=== PATIENT | female | born 1930 | race Caucasian/White ===

== ENCOUNTER 2017-12-12 14:47 | Inpatient (IN) | payer MEDICARE, OTHER ==
[~2017-12-12] VITALS: Ht 152.4 cm; Wt 80.0 kg
[~2017-12-12 14:47] MED LIST: ADV50100 IH; AMLO2.5T2 PO; CICL90CR3 TOP; COR3.125T PO; LORA1TAB PO; SIMV10TA2 PO; SUCR1ORA12 PO; ZES10T PO
[2017-12-12] MEDS ORDERED: albuterol 2.5 MG/3 ML nebule NEB ONE (14:55)
[2017-12-12] MEDS ORDERED: ASPI-1265 PO (15:25)
[2017-12-12 15:27] LABS: ALANINE AMINOTRANSFERASE 17 U/L (12-78); ALBUMIN 3.1 G/DL (3.4-5.0); ALBUMIN/GLOBULIN RATIO 0.9 (1.1-1.5); ALKALINE PHOSPHATASE 75 IU/L (46-116); ANION GAP 10 (8-16); ASPARTATE AMINO TRANSFERASE 18 U/L (10-37); BILIRUBIN,TOTAL 0.4 MG/DL (0.1-1.0); BLOOD UREA NITROGEN 19 MG/DL (7-18); CALCIUM 8.3 MG/DL (8.5-10.1); CHLORIDE 109 MMOL/L (99-107); CREATININE 1.27 MG/DL (0.40-0.90); GLUCOSE 111 MG/DL (70-104); MAGNESIUM 1.6 MG/DL (1.5-2.4); POTASSIUM 3.8 MMOL/L (3.5-5.1); SODIUM 142 MMOL/L (135-145); TOTAL CARBON DIOXIDE 23.2 MMOL/L (24-32); TOTAL PROTEIN 6.7 G/DL (6.4-8.2); eGFR 40 ML/MIN
[2017-12-12 15:28] LABS: BASOPHILS % (AUTO) 0.4 % (0-1); EOSINOPHILS # (AUTO) 0.2 X10'3 (0-0.9); EOSINOPHILS % (AUTO) 2.7 % (0-6); HEMATOCRIT 39.1 % (35.0-45.0); LYMPHOCYTES # (AUTO) 2.8 X10'3 (1.1-4.8); LYMPHOCYTES % (AUTO) 32.9 % (21-51); MEAN CORPUSCULAR HEMOGLOBIN 29.3 PG (27.0-31.0); MEAN CORPUSCULAR HGB CONC 33.3 % (33.0-36.5); MEAN CORPUSCULAR VOLUME 87.9 FL (78-98); MEAN PLATELET VOLUME 8.5 FL (7.4-10.4); MONOCYTES # (AUTO) 0.6 X10'3 (0-0.9); MONOCYTES % (AUTO) 6.6 % (2-12); NEUTROPHILS # (AUTO) 4.9 X10'3 (1.8-7.7); NEUTROPHILS % (AUTO) 57.4 % (42-75); PLATELET COUNT 276 X10'3 (140-440); RED BLOOD COUNT 4.45 X10'6 (4.20-5.60); RED CELL DISTRIBUTION WIDTH 13.2 % (11.5-14.5); WHITE BLOOD COUNT 8.4 X10'3 (4.5-11.0)
[2017-12-12 15:35] LABS: INR 1.1 INR; PARTIAL THROMBOPLASTIN TIME 25 SECONDS (22-32); PROTHROMBIN TIME 10.7 SECONDS (9.0-12.0)
[2017-12-12] MEDS ORDERED: TIOT4MIS2 INH (15:37)
[2017-12-12] MEDS ORDERED: BUDE10.2 INH (15:37)
[2017-12-12] MEDS ORDERED: GABA-532 PO (15:37)
[2017-12-12] MEDS ORDERED: metoprolol tartrate 1mg/ml inj IV PRN (17:25)
[2017-12-12] MEDS ORDERED: magnesium 1gm/100ml D5W IVPB 100 ML IV PRN (17:25)
[2017-12-12] MEDS ORDERED: morphine 2 MG/ML inj. syringe IV PRN ×2 (17:25)
[2017-12-12] MEDS ORDERED: regadenoson 0.4mg/5ml syringe IV PRN (17:25)
[2017-12-12] MEDS ORDERED: magnesium 4gm in 100ml NS 100 ML IV PRN (17:25)
[2017-12-12] MEDS ORDERED: mag hydrox/Alum hydrox/simeth 30ml oral suspension PO PRN (17:25)
[2017-12-12] MEDS ORDERED: magnesium Cl slow-release 64mg tablet PO PRN (17:25)
[2017-12-12] MEDS ORDERED: potassium Cl 20 mEq SR tablet PO PRN ×2 (17:25)
[2017-12-12] MEDS ORDERED: acetaminophen 325mg tablet PO PRN ×2 (17:25)
[2017-12-12] MEDS ORDERED: magnesium hydroxide 30ml (MOM) UD suspension PO PRN (17:25)
[2017-12-12] MEDS ORDERED: nitroGLYCERIN 0.4mg SUBLingual tab SL PRN ×2 (17:25)
[2017-12-12] MEDS ORDERED: aminophylline 250mg/10ml inj. IV PRN (17:25)
[2017-12-12] MEDS ORDERED: ondansetron/PF 4mg/2ml inj IV PRN (17:25)
[2017-12-12] MEDS ORDERED: metoprolol tartrate 1mg/ml inj IV ONE (17:25)
[2017-12-12] MEDS ORDERED: potassium Cl 40MEQ/NS 500ml 500 ML IV PRN ×2 (17:25)
[2017-12-12 18:02] LABS: HEMOGLOBIN A1C 5.5 % (4.5-6.2)
[2017-12-12] MEDS ORDERED: metoprolol tartrate 50mg tablet PO SCH (20:00)
[2017-12-12] MEDS ORDERED: hydrALAZINE 20mg/ml inj. IV PRN (20:05)
[2017-12-12 20:35] VITALS: BP 162/72
[2017-12-12] MEDS ORDERED: gabapentin 300mg capsule PO SCH (21:00)
[2017-12-12] MEDS: budesonide 0.5mg/2ml UD nebule IH SCH (21:30)
[2017-12-12 23:15] VITALS: BP 185/80
[2017-12-13] VITALS (12 sets, daily range): BP systolic 117–171; BP diastolic 60–81
[2017-12-13 05:52] LABS: BASOPHILS % (AUTO) 0.4 % (0-1); EOSINOPHILS # (AUTO) 0.3 X10'3 (0-0.9); EOSINOPHILS % (AUTO) 3.4 % (0-6); HEMATOCRIT 43.7 % (35.0-45.0); HEMOGLOBIN 14.6 g/dl (12.0-16.0); LYMPHOCYTES # (AUTO) 2.6 X10'3 (1.1-4.8); LYMPHOCYTES % (AUTO) 31.9 % (21-51); MEAN CORPUSCULAR HEMOGLOBIN 29.2 PG (27.0-31.0); MEAN CORPUSCULAR HGB CONC 33.4 % (33.0-36.5); MEAN CORPUSCULAR VOLUME 87.4 FL (78-98); MEAN PLATELET VOLUME 9.1 FL (7.4-10.4); MONOCYTES # (AUTO) 0.7 X10'3 (0-0.9); MONOCYTES % (AUTO) 8.2 % (2-12); NEUTROPHILS # (AUTO) 4.5 X10'3 (1.8-7.7); NEUTROPHILS % (AUTO) 56.1 % (42-75); PLATELET COUNT 290 X10'3 (140-440); RED BLOOD COUNT 4.99 X10'6 (4.20-5.60); RED CELL DISTRIBUTION WIDTH 13.4 % (11.5-14.5); WHITE BLOOD COUNT 8.1 X10'3 (4.5-11.0)
[2017-12-13 06:14] LABS: ALBUMIN 3.3 G/DL (3.4-5.0); ANION GAP 10 (8-16); BLOOD UREA NITROGEN 22 MG/DL (7-18); BUN/CREATININE RATIO 19.8 (6.6-38.0); CALCIUM 9.7 MG/DL (8.5-10.1); CHLORIDE 106 MMOL/L (99-107); CHOLESTEROL 279 MG/DL (0-200); CREATININE 1.11 MG/DL (0.40-0.90); GLUCOSE 95 MG/DL (70-104); HDL CHOLESTEROL 56 MG/DL (35-60); LDL CHOLESTEROL 206 MG/DL (50-100); MAGNESIUM 2.1 MG/DL (1.5-2.4); POTASSIUM 3.8 MMOL/L (3.5-5.1); SODIUM 142 MMOL/L (135-145); TRIGLYCERIDES 72 MG/DL (20-135); eGFR 46 ML/MIN
[2017-12-13] MEDS ORDERED: ipratropium 0.5 MG/2.5ML nebule IH SCH (07:00)
[2017-12-13] MEDS: budesonide 0.5mg/2ml UD nebule IH SCH (07:05)
[2017-12-13] MEDS: ipratropium/albuterol 3ml nebule NEB SCH ×2 (07:05→11:00)
[2017-12-13] MEDS ORDERED: metoprolol tartrate 12.5mg (1/2 tablet) PO SCH (07:38)
[2017-12-13] MEDS ORDERED: [UNRECOGNIZED DRUG - OTHER] INH SCH (08:00)
[2017-12-13] MEDS ORDERED: BUDESONIDE INH SCH (08:00)
[2017-12-13] MEDS ORDERED: FORMOTEROL FUMARATE INH SCH (08:00)
[2017-12-13] MEDS ORDERED: aspirin 325mg tablet, delayed-release (Ecotrin) PO SCH (08:00)
[2017-12-13] MEDS ORDERED: enoxaparin 30mg/0.3ml syringe SQ SCH (08:00)
[2017-12-13] MEDS ORDERED: K and/or MAG REPLACEMENT MC SCH (08:00)
[2017-12-13] MEDS ORDERED: TIOTROPIUM BROMIDE INH SCH (08:00)
[2017-12-13] MEDS ORDERED: atorvastatin 20mg tablet PO SCH (08:45)
[2017-12-13] MEDS ORDERED: aminophylline inj. 10 ML IV ONE (09:26)
[2017-12-13] MEDS ORDERED: regadenoson 0.4mg/5ml syringe IV ONE (09:26)
[2017-12-13] MEDS ORDERED: NITR0.4T51 SL (12:24)
[2017-12-13] MEDS ORDERED: LISI10TA4 PO (12:24)
[2017-12-13] MEDS ORDERED: ASPI81TA52 PO (12:24)
[2017-12-13] MEDS ORDERED: ATOR20TA66 PO (12:24)
[2017-12-13] MEDS ORDERED: METO25TA6 PO (12:24)
== END 2017-12-13 14:23 | disposition home or self-care (01) | DRG 206 ==
LOC: ER 14:47 → ED HOLD 17:21 → SUR 3N 20:30
PROVIDERS: ADMIT Hospitalist; ATTEND Internal Medicine
PROC: 4A02XM4 Measurement of Cardiac Total Activity, External Approach (ICD-10-PCS; principal; 2017-12-13)
PROC: 3E033HZ Introduction of Radioactive Substance into Peripheral Vein, Percutaneous Approach (ICD-10-PCS; 2017-12-13)
DX: M94.0 Chondrocostal junction syndrome [Tietze] (principal); E78.00 Pure hypercholesterolemia, unspecified; E78.5 Hyperlipidemia, unspecified; F41.9 Anxiety disorder, unspecified; I10 Essential (primary) hypertension; I44.7 Left bundle-branch block, unspecified; J44.9 Chronic obstructive pulmonary disease, unspecified; I25.10 Atherosclerotic heart disease of native coronary artery without angina pectoris; I25.2 Old myocardial infarction; Z90.49 Acquired absence of other specified parts of digestive tract; Z98.51 Tubal ligation status; Z88.5 Allergy status to narcotic agent; Z79.82 Long term (current) use of aspirin; Z79.899 Other long term (current) drug therapy; Z86.73 Personal history of transient ischemic attack (TIA), and cerebral infarction without residual deficits; Z86.74 Personal history of sudden cardiac arrest
CPT/HCPCS: 36415; 71045; 78452; 80048; 80053; 80061; 83036; 83735; 84484; 85025; 85610; 85730; 87070; 93005; 93017; 93306; 94640; 94760; 99285; A9500; G0378; J0280; J0360; J1650; J3490; J7626

== ENCOUNTER 2018-07-05 12:51 | Emergency (ER) | payer MEDICARE ==
[~2018-07-05] VITALS: Ht 152.4 cm; Wt 90.0 kg
[~2018-07-05 12:51] MED LIST changes: -ADV50100 IH; -AMLO2.5T2 PO; +ATOR20TA66 PO; +BUDE10.2 INH; -CICL90CR3 TOP; -COR3.125T PO; +GABA-532 PO; +LISI10TA4 PO; -LORA1TAB PO; +METO25TA6 PO; +NITR0.4T51 SL; -SIMV10TA2 PO; -SUCR1ORA12 PO; +TIOT4MIS2 INH; -ZES10T PO
[2018-07-05] MEDS ORDERED: normal saline 1000ml 1,000 ML IV ONE (13:01)
[2018-07-05] MEDS ORDERED: albuterol 2.5 MG/3 ML nebule CONTNEB PRN (13:05)
[2018-07-05] MEDS ORDERED: methylPREDNISolone sod succ 125mg/2ml vial IV ONE (13:05)
[2018-07-05 13:27] LABS: BASOPHILS # (AUTO) 0.1 X10'3 (0-0.2); BASOPHILS % (AUTO) 0.8 % (0-1); EOSINOPHILS # (AUTO) 0.3 X10'3 (0-0.9); EOSINOPHILS % (AUTO) 3.2 % (0-6); HEMATOCRIT 43.7 % (35.0-45.0); HEMOGLOBIN 14.6 g/dl (12.0-16.0); LYMPHOCYTES # (AUTO) 3.5 X10'3 (1.1-4.8); LYMPHOCYTES % (AUTO) 42.4 % (21-51); MEAN CORPUSCULAR HEMOGLOBIN 29.5 PG (27.0-31.0); MEAN CORPUSCULAR HGB CONC 33.3 g/dL (33.0-36.5); MEAN CORPUSCULAR VOLUME 88.5 FL (78-98); MEAN PLATELET VOLUME 7.7 FL (7.4-10.4); MONOCYTES # (AUTO) 0.7 X10'3 (0-0.9); MONOCYTES % (AUTO) 8.7 % (2-12); NEUTROPHILS # (AUTO) 3.7 X10'3 (1.8-7.7); NEUTROPHILS % (AUTO) 44.9 % (42-75); PLATELET COUNT 368 X10'3 (140-440); RED BLOOD COUNT 4.93 X10'6 (4.20-5.60); RED CELL DISTRIBUTION WIDTH 13.3 % (11.5-14.5); WHITE BLOOD COUNT 8.4 X10'3 (4.5-11.0)
[2018-07-05 13:43] LABS: ALANINE AMINOTRANSFERASE 22 U/L (12-78); ALBUMIN 3.3 G/DL (3.4-5.0); ALBUMIN/GLOBULIN RATIO 0.8 (1.1-1.5); ALKALINE PHOSPHATASE 77 IU/L (46-116); ANION GAP 8 (8-16); ASPARTATE AMINO TRANSFERASE 19 U/L (10-37); BILIRUBIN,TOTAL 0.4 MG/DL (0.1-1.0); BLOOD UREA NITROGEN 26 MG/DL (7-18); BUN/CREATININE RATIO 23.9 (6.6-38.0); CALCIUM 8.7 MG/DL (8.5-10.1); CHLORIDE 105 MMOL/L (99-107); CREATININE 1.09 MG/DL (0.40-0.90); GLUCOSE 130 MG/DL (70-104); PARTIAL THROMBOPLASTIN TIME 27 SECONDS (22-32); POTASSIUM 3.7 MMOL/L (3.5-5.1); SODIUM 140 MMOL/L (135-145); TOTAL PROTEIN 7.3 G/DL (6.4-8.2); eGFR 47 ML/MIN
[2018-07-05 13:50] LABS: MAGNESIUM 1.9 MG/DL (1.5-2.4)
[2018-07-05] MEDS ORDERED: PRED20TA PO (15:20)
[2018-07-05] MEDS ORDERED: ALBU6.7H INH (15:20)
[2018-07-05] MEDS ORDERED: albuterol 2.5 MG/3 ML nebule NEB ONE (15:20)
[2018-07-05 16:56] VITALS: BP 160/94
== END 2018-07-05 16:58 | disposition home or self-care (01) ==
LOC: ER 12:52
DX: J45.909 Unspecified asthma, uncomplicated (principal); I25.10 Atherosclerotic heart disease of native coronary artery without angina pectoris; E78.00 Pure hypercholesterolemia, unspecified; I10 Essential (primary) hypertension; I25.2 Old myocardial infarction; Z90.49 Acquired absence of other specified parts of digestive tract; Z98.51 Tubal ligation status; Z88.5 Allergy status to narcotic agent; Z98.890 Other specified postprocedural states; Z79.899 Other long term (current) drug therapy; Z86.73 Personal history of transient ischemic attack (TIA), and cerebral infarction without residual deficits
CPT/HCPCS: 36415; 71045; 80053; 83605; 83735; 83880; 84484; 85025; 85610; 85730; 87040; 93005; 94640; 94760; 96374; 99284; J2930; J7030